=== PATIENT | female | born 2000 | race Caucasian/White ===

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

== ENCOUNTER → 2023-09-15 | Outpatient (CLI) | payer BC ==
--- NOTE | 2023-09-15 14:42 | USB ---
Reason for Exam: Clinical finding. Technique: Method: Whole Breast Handheld. Findings: The whole breast of the left breast, the axilla of the left breast and the retroareolar of the left breast were scanned. At the approximate 6:00 position within the dense breast tissue there is a 1.1 x 0.6 x 1.3 cm slightly hypoechoic area. This just may be normal parenchymal tissue accentuated by the dense parenchymal tissue surrounding. Precautionary short-term follow-up is recommended. Lymph nodes are identified at the 1:00 position 8 cm from the nipple. No cortical thickening however is evident. Overall Assessment: Probably benign, BI-RAD 3 Management: Diagnostic Breast Ultrasound of the left breast in 6 months. A clinical breast exam by your physician is recommended on an annual basis and results should be correlated with mammographic findings. This exam should not preclude additional follow-up of suspicious palpable abnormalities. Results were given to the patient verbally at the time of exam. Electronically signed and approved by: Oren Goldman D.O. Radiologis
== END | disposition home or self-care (01) ==
LOC: RADUSWWP 13:37
PROVIDERS: ATTEND Family Medicine
DX: N63.25 Unspecified lump in the left breast, overlapping quadrants (principal)